=== PATIENT | male | born 1975 | race Caucasian/White ===

== ENCOUNTER → 2017-03-08 | Outpatient (CLI) | payer BC ==
[2017-03-08 12:31] LABS: HEMATOCRIT 46.8 % (42-52); MEAN CELL VOLUME 79.2 fL (80-100); MEAN CORPUSCULAR HEMOGLOBIN 27.2 pg (25-34); MEAN CORPUSCULAR HGB CONC 34.4 g/dl (32-36); MEAN PLATELET VOLUME 9.1 fL (7.4-10.4); PLATELET COUNT 239 K/uL (130-400); RED BLOOD COUNT 5.91 M/uL (4.7-6.1); WHITE BLOOD COUNT 5.82 K/uL (4.8-10.8)
[2017-03-08 12:51] LABS: ALT/SGPT 58 U/L (12-78); AST/SGOT 26 U/L (15-37); BLOOD UREA NITROGEN 10 mg/dl (7-18); BUN/CREATININE RATIO 11.1 (10-20); CALCIUM 9.4 mg/dl (8.5-10.1); CARBON DIOXIDE 29 mmol/L (21-32); CHLORIDE 106 mmol/L (98-107); GLUCOSE 89 mg/dl (70-99); SODIUM 138 mmol/L (136-145)
[2017-03-08 12:53] LABS: ALKALINE PHOSPHATASE 97 U/L (45-117); C-REACTIVE PROTEIN < 0.29 mg/dl (0-0.29); RHEUMATOID FACTOR < 10.0 U/mL (0-15)
[2017-03-08 13:43] LABS: LYME DISEASE AB IGM NEG (NEG)
[2017-03-08 13:46] LABS: LYME DISEASE AB IGG NEG (NEG)
== END | disposition home or self-care (01) ==
LOC: C.LAB 11:12
PROVIDERS: ATTEND Family Medicine
DX: M79.1 Myalgia (principal)